=== PATIENT | female | born 1960 | race Hispanic/Latino ===

== ENCOUNTER 2024-03-30 18:42 | Emergency (ER) | payer BC, SELFPAY ==
[2024-03-30 18:44] VITALS: BP 139/77
[2024-03-30 19:03] LABS: % Basophils 0.5 % (0-2); % Eosinophils 5.8 % (0-6); % Immature Granulocytes 0.2 % (0-0.5); % Lymphocytes 27.4 % (20.5-51.1); % Monocytes 5.6 % (1.7-9.3); % Neutrophils 60.5 % (42.2-75.2); Absolute Basophils 0.1 10^3/uL (0-0.2); Absolute Eosinophils 0.5 10^3/uL (0-0.7); Absolute Lymphocytes 2.6 10^3/uL (1.2-3.4); Absolute Monocytes 0.5 10^3/uL (0.1-0.6); Absolute Neutrophils 5.7 10^3/uL (1.4-6.5); Hematocrit 39.5 % (37.0-47.0); Hemoglobin 13.2 g/dL (12.0-16.0); Mean Corp Hgb Conc. 33.4 g/dL (33.0-37.0); Mean Corpuscular Hgb 30.3 pg (27.0-31.0); Mean Corpuscular Volume 90.8 fL (81.0-99.0); Mean Platelet Volume 9.1 fL (7.4-10.4); Nucleated Red Blood Cells % 0 %; Platelet Count 361 10^3/uL (130-400); Red Blood Cell Count 4.35 10^6/uL (4.20-5.40); Red Cell Dist. Width 12.4 % (11.5-14.5); White Blood Cell Count 9.4 10^3/uL (4.8-10.8)
[2024-03-30 19:23] LABS: ALT (SGPT) 13 U/L (0-35); AST (SGOT) 22 U/L (14-36); Albumin 4.4 g/dl (3.5-5.0); Alkaline Phosphatase 102 U/L (38-126); Blood Urea Nitrogen 17 mg/dl (7-17); Calcium 9.5 mg/dl (8.4-10.2); Carbon Dioxide 25 mmol/L (22-30); Chloride 105 mmol/L (98-107); Glucose 110 mg/dl (70-99); Potassium 4.8 mmol/L (3.5-5.1); Sodium 143 mmol/L (135-145); Total Bilirubin 0.3 mg/dl (0.2-1.3); Total Protein 7.4 g/dl (6.3-8.2); eGFR > 60.00
[2024-03-30 19:29] LABS: Troponin I < 0.012 ng/ml
[2024-03-30 20:32] VITALS: BP 107/72
[2024-03-30 21:00] VITALS: BP 129/78
--- NOTE | 2024-03-30 22:08 | ED.GENMED ---
History of Present Illness
General
Chief Complaint: Chest Pain
Source: patient and family
Exam Limitations: none
Time Seen by Provider: 03/30/24 20:44
History of Present Illness
History of Present Illness:
64-year-old female presents chest pain is been ongoing for 10 days. Patient states that it hurts on the right side into her back. She admits that it is worse when she moves or sits up. She states that she also has had a little bit of a headache.
Sometimes it makes it feel like she cannot breathe. Patient states she just got frustrated that it has not gone away and decided to come in. She denies fevers or hemoptysis. No leg swelling. No pleuritic pain. No rash. No obvious
Past History
Past History
ED Past Medical History: None
ED Past Surgical History: Other (ear surgery)
Phy Exam
Physical Exam
Physical Exam:
CONSTITUTIONAL Patient alert and oriented to person, place and time. Well-appearing. Vital signs reviewed.
HEAD atraumatic, normocephalic.
EYES eyelids normal to inspection, Pupils equally round and reactive to light, Extraocular muscles intact, Conjunctiva normal, Sclera normal.
NECK normal range of motion, Trachea midline, no jugular venous distention.
RESPIRATORY CHEST No respiratory distress noted, Chest expansion equal, Bilateral breath sounds clear. Moderate right chest wall tenderness. Moderate right trapezius tenderness
CARDIOVASCULAR regular rate and rhythm, Heart sounds normal.
ABDOMEN abdomen nontender, Bowel sounds normal. No distention.
BACK normal inspection, no obvious deformities
UPPER EXTREMITY range of motion normal, Motor strength normal, no cyanosis, no edema.
LOWER EXTREMITY range of motion normal, Motor strength normal, no cyanosis, no edema.
NEURO Speech normal, No focal motor deficits, Noble coma scale 15, Memory normal, Cranial Nerves intact to screening exam.
SKIN skin warm, dry, and normal in color.
PSYCHIATRIC patient oriented to person place and time, Normal affect.
Scores
Heart Score for Chest Pain Patients
STEMI patient?: Not applicable
Course
Orders/Labs/Results
Orders:
Orders
03/30/24 18:46
ECG [Electrocardiogram (*1)] Urgent
Reason for Study: Chest Pain
EKG- Treatment ONCE
03/30/24 18:55
Complete Blood Count/With Diff Urgent
Comprehensive Metabolic Panel Urgent
Troponin I Urgent
03/30/24 20:54
CR Chest - 2 Views Urgent
Comment:
Reason For Exam: cp
03/30/24 22:08
Ketorolac [Toradol] 30 mg IM NOW STA
Abnormal Lab Results
03/30/24
18:55
Glucose 110 H mg/dl
(70-99)
03/30/24 18:55
03/30/24 18:55
Vital Signs
Initial and Last Documented VS:
Initial Vital Signs
Temp Pulse Resp BP Pulse Ox
97.9 F 67 18 139/77 98
03/30/24 18:44 03/30/24 18:44 03/30/24 18:44 03/30/24 18:44 03/30/24 18:44
Last Documented Vital Signs
Temp Pulse Resp BP Pulse Ox
97.9 F 65 17 129/78 97
03/30/24 18:44 03/30/24 21:00 03/30/24 21:00 03/30/24 21:00 03/30/24 21:00
MDM/Problems Addressed
MDM/Problems Addressed:
Chest pain
*Radiology
Radiology exam reviewed: all reviewed NAD by ED Provider
*Pulse Oximetry
Patient hypoxic: no
*EKG
Interpreted by ED Provider?: Yes
Interpretation: normal
Rate: normal
Rhythm: sinus
[place]: normal axis
Interval: normal interval
QRS Pattern: normal QRS
Ischemia: no ischemia
*Respiratory Therapist Interpretation
Rate: normal
Interpretation: normal
Rhythm: sinus
*Critical Care Note
Total Time (30-74mins, 75-104mins- exclusive of procedures): Not Applicable
Data Reviewed
Source: patient and family
Further Testing Considered But Not Given:
Consider D-dimer but no tachycardia, no pleuritic pain, no risk factors. No recent travel. No signs of DVT. No family history of DVT or PE
Patient Management
Escalation/DeEscalation of care consider admission/obs:
10 days of symptoms. Symptoms have been constant EKG and troponin negative. Suspect musculoskeletal etiology. Okay for PCP follow-up
ED Attending Note
-
Portions of this chart may have been created with voice recognition software.� Occasional wrong word or��sound alike� substitutions may have occurred due to the inherent limitations of voice recognition software.
Discharge Plan
Departure
Patient Disposition: Home (Routine Discharge)
Date of Disposition: 03/30/24
Time of Disposition: 22:11
Patient with high blood pressure during this ER visit?: No
Discharge Problem:
Chest pain
Instructions: Chest Pain PCP Follow Up
Prescriptions:
No Action
No Current Medications
0
Referrals:
Freda Negron MD [Family Provider] -
Activity Restrictions/Additional Instructions:
Please see your doctor in the next 3 to 5 days for follow-up and reevaluation. Return immediately for shortness of breath, worsening pain or any other concerns.
Interventions
Interventions:
ED- Fall Risk Assessment Last Done: 03/30/24 20:33
*Nursing Disposition Last Done: 03/30/24 22:44
ED- Cardiac Assessment Last Done: 03/30/24 20:32
Discharge Date and Time
Discharge Date/Time: 03/30/24 22:45
Print Language: OCCITAN
[2024-03-30] MEDS: TORADOL 30 MG IM (22:29)
== END 2024-03-30 22:45 | disposition home or self-care (01) ==
LOC: EMR 18:42
PROVIDERS: Emergency Medicine; EMERGENCY PHYSICIAN Emergency Medicine; FAMILY PHYSICIAN Internal Medicine
DX: R07.89 Other chest pain (principal)
CPT/HCPCS: 99285; 96372; 71046; 80053; 84484; 85025; 93005